=== PATIENT | male | born 1980 | race Caucasian/White ===

== ENCOUNTER → 2018-03-07 | Outpatient (CLI) | payer OTHER ==
[2015-03-01 17:40] VITALS: BP 127/86
[~2018-03-07] MED LIST: HYDR-2679 PO; LITH450T PO; ONDA4TAB7 PO; QUET25TA5 PO; SULF1TAB24 PO; TRAZ-85 PO
== END | disposition home or self-care (01) ==
LOC: SPEC 07:57
PROVIDERS: ATTEND Surgery
DX: L02.91 Cutaneous abscess, unspecified (principal)
CPT/HCPCS: 87071; 87075

== ENCOUNTER 2020-12-03 09:06 | Inpatient (IN) | payer OTHER ==
[~2020-12-03] VITALS: Ht 182.9 cm; Wt 94.0 kg
[2020-12-03 09:00] VITALS: BP 137/83
--- NOTE | 2020-12-03 09:00 | NUR ---
Pt to room by EMS. Attached to cardiac nurse practitioner. Monitor shows SR. VSS. Pt A&Ox4. C/O some chest pain. Heparin gtt infusing. Pt states he takes numerous psych meds. Instructed him to have family bring his medications to the hospital. Will continue to monitor.
[~2020-12-03 09:06] MED LIST changes: +TRAZ-118 PO; -TRAZ-85 PO
[2020-12-03 09:30] VITALS: BP 150/90
[2020-12-03 10:00] VITALS: BP 120/64
[2020-12-03 12:00] VITALS: BP 117/72
[2020-12-03] MEDS ORDERED: OLAN5TAB67 PO (12:50)
[2020-12-03] MEDS ORDERED: LEVO50TA5 PO (12:50)
[2020-12-03] MEDS ORDERED: LISI2.5T PO (12:50)
[2020-12-03] MEDS ORDERED: SITA100T PO (12:50)
[2020-12-03] MEDS ORDERED: GABA300C18 PO (12:50)
[2020-12-03] MEDS ORDERED: TRAZ-118 PO (12:50)
[2020-12-03] MEDS ORDERED: BREX1TAB PO (12:50)
[2020-12-03] MEDS ORDERED: LITH300C PO (12:50)
[2020-12-03] MEDS ORDERED: ALLO300T PO (12:50)
[2020-12-03] MEDS ORDERED: LAMO300T2 PO (12:50)
[2020-12-03] MEDS ORDERED: METF10007 PO (12:50)
[2020-12-03] MEDS: GABAPENTIN 300 MG CAPSULE. PO SCH ×2 (13:16→20:47)
[2020-12-03] MEDS: ALLOPURINOL 300 MG TABLET. PO SCH (13:16)
[2020-12-03] MEDS: LITHIUM CARBONATE 150 MG CAPSULE. PO SCH ×2 (13:16→20:47)
[2020-12-03] MEDS: LISINOPRIL 5 MG TABLET. PO SCH (13:17)
[2020-12-03 13:18] LABS: CALCIUM 8.6 mg/dL (8.5-10.1); CREATININE 0.9 mg/dL (0.7-1.3); MAGNESIUM 2.1 mg/dL (1.8-2.4)
[2020-12-03] MEDS: metFORMIN 500 MG TABLET PO SCH ×2 (13:18→16:22)
[2020-12-03] MEDS: LEVOTHYROXINE 50 MCG TABLET PO SCH (13:18)
[2020-12-03] MEDS: HEPARIN for IV BOLUS 10,000 UNIT/10 ML VIAL. IV PRN (13:49)
--- NOTE | 2020-12-03 15:12 | PDOC2 ---
CONSULT Date of Consult Date of Consult DATE: 12/03/20 TIME: 15:07 Reason for Consult Reason for Consult: Chest pain Referring Physician Referring Physician: Dr. Armando Identification/Chief Complaint Chief Complaint Chest pain Source Source: Chart review, Patient History of Present Illness Reason for Visit: The patient is a 40-year-old male who was seen in the emergency room at [facility] for episodes of chest pain. His EKG showed no acute ischemic changes but he had a minimally elevated troponin. He also has risk factors of hypertension and diabetes. He was started on heparin and transferred to [place]. This morning the patient reports being pain-free. He denies chest pain, shortness of breath, dizziness or lightheadedness. He is in a sinus rhythm. Of note he also has a history of schizophrenia. Past Medical History Cardiovascular: HTN Pulmonary: Asthma Endocrine: Diabetes Past Surgical History Past Surgical History: No pertinent history Family History Family History: Hypertension Social History 1 pack per day ALCOHOL: occassional Current Medications Current Medications Current Medications Heparin Sodium/ Dextrose 250 ml @ 0 mls/hr CONT PRN IV PER PROTOCOL; Start 12/03/20 at 10:00 Heparin Sodium (Porcine) (Heparin Sodium) 2,450 unit PRN Q6HRS PRN IV FOR UFH LEVEL LESS THAN 0.2 Last administered on 12/03/20at 13:49; Start 12/03/20 at 10:00 Allopurinol (Zyloprim) 300 mg DAILY PO Last administered on 12/03/20at 13:16; Start 12/03/20 at 13:30 Gabapentin (Neurontin) 300 mg TID PO Last administered on 12/03/20at 13:16; Start 12/03/20 at 13:30 Levothyroxine Sodium (Synthroid) 50 mcg DAILY06 PO Last administered on 12/03/20at 13:18; Start 12/03/20 at 13:30 Olanzapine (ZyPREXA) 15 mg QHS PO ; Start 12/03/20 at 21:00 Trazodone HCl (Desyrel) 50 mg QHS PO ; Start 12/03/20 at 21:00 Non-Formulary Medication (Brexpiprazole (Rexulti)) 3 tab HS PO ; Start 12/03/20 at 21:00; Status UNV Lamotrigine (LaMICtal) 300 mg HS PO ; Start 12/03/20 at 21:00 Lisinopril (Prinivil) 2.5 mg DAILY PO Last administered on 12/03/20at 13:17; Start 12/03/20 at 13:30 [place] Carbonate ([place] Carbonate) 300 mg BID PO Last administered on 12/03/20at 13:16; Start 12/03/20 at 13:30 Metformin HCl (Glucophage) 1,000 mg BIDWMEALS PO Last administered on 12/03/20at 13:18; Start 12/03/20 at 13:30 Active Scripts Active Reported Gabapentin (Gabapentin) 300 Mg Capsule 300 Mg PO TID [place] Carbonate 300 Mg Capsule 1 Cap PO BID Metformin Hcl 1,000 Mg Tablet 1,000 Mg PO BIDWMEALS Olanzapine 5 Mg Tablet 3 Tab PO QHS Rexulti (Brexpiprazole) 1 Mg Tablet 3 Tab PO HS 30 Days Lamotrigine 300 Mg Tab.er.24 1 Tab PO HS 30 Days Trazodone Hcl 50 Mg Tablet 1 Tab PO QHS Januvia (Sitagliptin Phosphate) 100 Mg Tablet 1 Tab PO DAILY Lisinopril 2.5 Mg Tablet 1 Tab PO DAILY Allopurinol 300 Mg Tablet 1 Tab PO DAILY Levothyroxine Sodium 50 Mcg Tablet 1 Tab PO DAILY Allergies Allergies: Coded Allergies: codeine (Verified Allergy, Intermediate, Unknown, 03/01/15) ROS Cardiovascular: yes Chest Pain Physical Exam General: No acute distress HEENT: Atraumatic Lungs: Clear to auscultation Heart: Regular rate Abdomen: Normal bowel sounds Vitals VITALS Vital Signs Date Time Temp Pulse Resp B/P (MAP) Pulse Ox O2 Delivery O2 Flow Rate FiO2 12/03/20 13:17 77 137/81 12/03/20 12:00 98.0 22 94 Room Air 98.0 Labs Labs Laboratory Tests Test 12/03/20 12:25 Heparin Anti-Xa Act, Unfractionated < 0.10 IU/mL (0.30-0.70) Sodium Level 142 mmol/L (136-145) Potassium Level 4.0 mmol/L (3.5-5.1) Chloride Level 104 mmol/L (98-107) Carbon Dioxide Level 30 mmol/L (21-32) Anion Gap 8 (6-14) Blood Urea Nitrogen 7 mg/dL (8-26) Creatinine 0.9 mg/dL (0.7-1.3) Estimated GFR (Cockcroft-Gault) 93.0 Glucose Level 170 mg/dL (70-99) Calcium Level 8.6 mg/dL (8.5-10.1) Magnesium Level 2.1 mg/dL (1.8-2.4) Troponin I Quantitative 2.030 ng/mL (0.000-0.055) Laboratory Tests Test 12/03/20 12:25 Heparin Anti-Xa Act, Unfractionated < 0.10 IU/mL (0.30-0.70) Sodium Level 142 mmol/L (136-145) Potassium Level 4.0 mmol/L (3.5-5.1) Chloride Level 104 mmol/L (98-107) Carbon Dioxide Level 30 mmol/L (21-32) Anion Gap 8 (6-14) Blood Urea Nitrogen 7 mg/dL (8-26) Creatinine 0.9 mg/dL (0.7-1.3) Estimated GFR (Cockcroft-Gault) 93.0 Glucose Level 170 mg/dL (70-99) Calcium Level 8.6 mg/dL (8.5-10.1) Magnesium Level 2.1 mg/dL (1.8-2.4) Troponin I Quantitative 2.030 ng/mL (0.000-0.055) Images Images Chest x-ray from [facility] showed no acute changes. Assessment/Plan Assessment/Plan 1. Chest pain. No acute ischemic EKG changes. Minimally elevated troponin. Patient's been placed on aspirin and heparin. He is now pain-free. Will trend troponin. Further treatment based on the patient's clinical course. 2. Hypertension. Resume baseline medications. 3. Diabetes mellitus. As per the primary service. 4. History of schizophrenia. JAGJIT SOTOMAYOR MD Dec 03, 2020 15:12
[2020-12-03] MEDS ORDERED: NICOTINE 21MG PATCH. TD PRN (15:45)
[2020-12-03] MEDS: CALCIUM CARBONATE 500 MG TAB.CHEW PO PRN (15:48)
[2020-12-03 16:00] VITALS: BP 123/62
[2020-12-03 20:00] VITALS: BP 118/71
[2020-12-03] MEDS: lamoTRIgine 100 MG TABLET. PO SCH (20:47)
[2020-12-03] MEDS: OLANZapine 5 MG TABLET PO SCH (20:47)
[2020-12-03] MEDS: traZODone 50 MG TABLET. PO SCH (20:47)
[2020-12-03] MEDS: BREXPIPRAZOLE PO SCH (20:49)
[2020-12-03] MEDS: HEPARIN 25,000UTS/250ML PREMIX 250 ML IV PRN (23:51)
[2020-12-04] VITALS (9 sets, daily range): BP systolic 119–151; BP diastolic 65–98
[2020-12-04] MEDS: HEPARIN for IV BOLUS 10,000 UNIT/10 ML VIAL. IV PRN (01:51)
[2020-12-04] MEDS: LEVOTHYROXINE 50 MCG TABLET PO SCH (05:18)
[2020-12-04] MEDS: INSULIN LISPRO 300 UNITS/3 ML VIAL. SQ SCH ×3 (08:00→17:32)
[2020-12-04] MEDS ORDERED: DEXTROSE 50% 25 GM / 50ML DISP.SYRIN. IV PRN (08:00)
[2020-12-04] MEDS: LISINOPRIL 5 MG TABLET. PO SCH (08:33)
[2020-12-04] MEDS: LITHIUM CARBONATE 150 MG CAPSULE. PO SCH ×2 (08:33→21:19)
[2020-12-04] MEDS: ALLOPURINOL 300 MG TABLET. PO SCH (08:33)
[2020-12-04] MEDS: GABAPENTIN 300 MG CAPSULE. PO SCH ×3 (08:33→21:19)
--- NOTE | 2020-12-04 09:12 | HP ---
ADMIT DATE: 12/03/2020 HISTORY OF PRESENT ILLNESS: The patient is a 40-year-old male patient who presented to the emergency room of [facility] with a complaint of chest pain that apparently started a few days prior to arrival to the emergency room. The chest pain was centralized, started while he was sitting and watching TV. There was no exertional component to it. He denied any recent dyspnea on exertion, orthopnea, paroxysmal nocturnal dyspnea or edema. He denied any history of DVTs. Denied any history of recent trauma. He was evaluated in the Emergency Room and has had an EKG, which showed that he was in sinus tachycardia with a heart rate of 107 with no evidence of ST segment elevation. His lab work showed that his first set of troponin was 0.162. His coagulation tests were normal and his urine tox screen was negative. Therefore, he was transferred to [facility] with non-ST segment elevation myocardial infarction after he was started on heparin drip. PAST MEDICAL HISTORY: Significant for bronchial asthma, depression, diabetes, hypertension and schizophrenia. PAST SURGICAL HISTORY: Unremarkable. SOCIAL HISTORY: He apparently smokes cigarettes, drinks alcohol occasionally. He does not use any drugs. ALLERGIES: HE IS ALLERGIC TO CODEINE. MEDICATIONS: He is currently on the following medications: He is on atorvastatin calcium 40 mg at bedtime, lisinopril 2.5 mg once a day, gabapentin 100 mg once a day, lamotrigine 100 mg at bedtime, trazodone 50 mg at bedtime, Abilify Maintena 400 mg intramuscular every 3 weeks, olanzapine 5 mg every other day, metformin 500 mg twice a day and sitagliptin for Januvia 50 mg once a day. He is on levothyroxine sodium 75 mcg once a day. REVIEW OF SYSTEMS: As per history of present illness. PHYSICAL EXAMINATION: GENERAL: On arrival to the emergency room, he looked well and was clearly in no apparent respiratory distress. There is no pallor, jaundice, cyanosis, no thyromegaly, no jugular venous distention. No limb edema. VITAL SIGNS: His heart rate was 108, blood pressure was 151/95, temperature was 98.4, respiratory rate 20, and oxygen saturation was 98%. HEAD, EYES, EARS, NOSE, AND THROAT: Normocephalic, atraumatic. NECK: Supple. HEART: Normal first and second heart sounds, no gallop or murmur. CHEST: Clear to auscultation. No crepitation or rhonchi. ABDOMEN: Scaphoid, soft, nontender. NEUROLOGIC: He was grossly intact. LABORATORY DATA: Showed a white cell count of 8200, hemoglobin 16, hematocrit 46, MCV 89 and platelet count of 167,000 with normal manual differential. His chemistry showed a serum sodium 139, potassium 4.1, chloride 103, bicarbonate 22, anion gap of 14, BUN 8, creatinine 1.2. Estimated GFR was 66 mL per minute. His glucose was 268, calcium was 9, magnesium was 1.8 and first set of cardiac enzyme showed troponin to be 0.162. His prothrombin time/INR and APTT are normal; and his EKG showed that he was in sinus tachycardia with a heart rate of 107 with no STEMI, normal intervals. ASSESSMENT AND PLAN: The patient was transferred to [facility] with chest pain, non-ST segment elevation myocardial infarction. The patient has multiple other medical problems including a type 2 diabetes mellitus, hypertension, hypothyroidism and schizophrenia. DILIA/REESE/TYLER DR: Petr TID: [id number]
[2020-12-04] MEDS: NITROGLYCERIN SUBLINGUAL 0.4 MG BOTTLE OF 25. SL PRN ×5 (09:15→22:49)
[2020-12-04] MEDS ORDERED: NITROGLYCERIN SUBLINGUAL 0.4 MG BOTTLE OF 25. SL ONE (09:21)
[2020-12-04] MEDS: CALCIUM CARBONATE 500 MG TAB.CHEW PO PRN (09:23)
--- NOTE | 2020-12-04 09:30 | NUR ---
Pt c/o chest pain. States its a 10/27. Stat EKG obtained. Pt given NTG SL. Dr. Salinas notified. Pt states pain decreased to 1-06/29.
[2020-12-04 10:42] LABS: CHOLESTEROL/HDL RATIO 6.3
--- NOTE | 2020-12-04 11:13 | EKG ---
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
[2020-12-04] MEDS ORDERED: MORPHINE SULFATE 2 MG/ML INJ. IV ONE (11:15)
--- NOTE | 2020-12-04 11:21 | PN ---
DATE: 12/04/2020 SUBJECTIVE: The patient is resting flat in bed, in no apparent distress. On questioning him, he denied any complaint. In particular, he had no further episode of chest pain or shortness of breath. PHYSICAL EXAMINATION: GENERAL: When I examined him, he looked well and was clearly in no apparent respiratory distress. No pallor, jaundice, cyanosis, or thyromegaly. No jugular venous distention. No lower limb edema. VITAL SIGNS: His heart rate was 78, blood pressure was 151/79, temperature was 98, respiratory rate was 20 and oxygen saturation was 93% on room air. HEAD, EYES, EARS, NOSE, AND THROAT: Normocephalic, atraumatic. NECK: Supple. HEART: Showed normal first and second heart sounds. No gallop, rub or murmur. CHEST: Clear to auscultation. No crepitation or rhonchi. ABDOMEN: Distended, soft, nontender. NEUROLOGIC: He was grossly intact. LABORATORY DATA: His lab work showed that his second troponin was up to 2.030. ASSESSMENT: 1. Non-ST segment elevation myocardial infarction. 2. The patient has multiple risk factors for coronary artery disease including: A. Hypertension. B. Type 2 diabetes mellitus. C. Hyperlipidemia. D. He is also a smoker. PLAN: The patient was seen by the director federal and so far, there are no plans for cardiac catheterization. CAITLYN BLACKMAN: Petr TID: [id number]
--- NOTE | 2020-12-04 11:23 | EKG ---
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
--- NOTE | 2020-12-04 11:30 | NUR ---
Pt once again c/o of chest pain. NTG SL given. Stat EKG obtained. Order received for Morphine IV. Dr. Salinas here to evaluate patient.
[2020-12-04] MEDS: HEPARIN 25,000UTS/250ML PREMIX 250 ML IV PRN (12:40)
--- NOTE | 2020-12-04 15:00 | PDOC ---
PROGRESS NOTES Date of Service DATE: 12/04/20 TIME: 14:57 Subjective Subjective Patient seen and examined Objective Objective Vital Signs Date Time Temp Pulse Resp B/P (MAP) Pulse Ox O2 Delivery O2 Flow Rate FiO2 12/04/20 12:00 99.2 96 21 129/82 (98) 94 Room Air 99.2 Intake and Output 12/04/20 06:59 Intake Total 1810 ml Output Total 1300 ml Balance 510 ml Intake Oral 1190 ml Other 620 ml Output Urine Total 1300 ml # Voids 2 Physical Exam Abdomen: Normal bowel sounds Heart: Regular rate General: mild distress Lungs: Clear to auscultation Assessment Assessment 1. Chest pain. No acute ischemic EKG changes. Minimally elevated troponin with a peak of 2.03. The patient however reports occasional episodes of chest pain. No acute EKG changes with his chest pain. He remains on heparin. In this setting believe cardiac catheterization for definitive diagnosis of possible coronary disease is indicated. The procedure risk and benefits were discussed with the patient. We will proceed with cardiac catheterization tomorrow if the patient remained stable overnight. 2. Hypertension. Continuing present medications. 3. Diabetes mellitus. As per the primary service. 4. History of schizophrenia. 5. Mildly elevated LDL at 101 with an HDL of 29. Will start statins. Comment Review of Relevant I have reviewed the following items harmeet (where applicable) has been applied. Labs Laboratory Tests Test 12/03/20 12:25 12/03/20 18:15 12/04/20 00:01 12/04/20 08:14 Heparin Anti-Xa Act, Unfractionated < 0.10 IU/mL (0.30-0.70) 0.20 IU/mL (0.30-0.70) < 0.10 IU/mL (0.30-0.70) Sodium Level 142 mmol/L (136-145) Potassium Level 4.0 mmol/L (3.5-5.1) Chloride Level 104 mmol/L (98-107) Carbon Dioxide Level 30 mmol/L (21-32) Anion Gap 8 (6-14) Blood Urea Nitrogen 7 mg/dL (8-26) Creatinine 0.9 mg/dL (0.7-1.3) Estimated GFR (Cockcroft-Gault) 93.0 Glucose Level 170 mg/dL (70-99) Calcium Level 8.6 mg/dL (8.5-10.1) Magnesium Level 2.1 mg/dL (1.8-2.4) Troponin I Quantitative 2.030 ng/mL (0.000-0.055) Glucose (Fingerstick) 149 mg/dL (70-99) Test 12/04/20 08:15 12/04/20 12:38 12/04/20 14:10 Heparin Anti-Xa Act, Unfractionated 0.52 IU/mL (0.30-0.70) 0.44 IU/mL (0.30-0.70) Troponin I Quantitative 1.812 ng/mL (0.000-0.055) Triglycerides Level 265 mg/dL (0-150) Cholesterol Level 183 mg/dL (0-200) LDL Cholesterol, Calculated 101 mg/dL (0-100) VLDL Cholesterol, Calculated 53 mg/dL (0-40) Non-HDL Cholesterol Calculated 154 mg/dL (0-129) HDL Cholesterol 29 mg/dL (40-60) Cholesterol/HDL Ratio 6.3 Glucose (Fingerstick) 193 mg/dL (70-99) Laboratory Tests Test 12/03/20 18:15 12/04/20 00:01 12/04/20 08:14 12/04/20 08:15 Heparin Anti-Xa Act, Unfractionated 0.20 IU/mL (0.30-0.70) < 0.10 IU/mL (0.30-0.70) 0.52 IU/mL (0.30-0.70) Glucose (Fingerstick) 149 mg/dL (70-99) Troponin I Quantitative 1.812 ng/mL (0.000-0.055) Triglycerides Level 265 mg/dL (0-150) Cholesterol Level 183 mg/dL (0-200) LDL Cholesterol, Calculated 101 mg/dL (0-100) VLDL Cholesterol, Calculated 53 mg/dL (0-40) Non-HDL Cholesterol Calculated 154 mg/dL (0-129) HDL Cholesterol 29 mg/dL (40-60) Cholesterol/HDL Ratio 6.3 Test 12/04/20 12:38 12/04/20 14:10 Glucose (Fingerstick) 193 mg/dL (70-99) Heparin Anti-Xa Act, Unfractionated 0.44 IU/mL (0.30-0.70) Medications Current Medications Heparin Sodium/ Dextrose 250 ml @ 0 mls/hr CONT PRN IV PER PROTOCOL Last administered on 12/04/20 12:40; Start 12/03/20 at 10:00 Heparin Sodium (Porcine) (Heparin Sodium) 2,450 unit PRN Q6HRS PRN IV FOR UFH LEVEL LESS THAN 0.2 Last administered on 12/04/20 01:51; Start 12/03/20 at 10:00 Allopurinol (Zyloprim) 300 mg DAILY PO Last administered on 12/04/20 08:33; Start 12/03/20 at 13:30 Gabapentin (Neurontin) 300 mg TID PO Last administered on 12/04/20 12:35; Start 12/03/20 at 13:30 Levothyroxine Sodium (Synthroid) 50 mcg DAILY06 PO Last administered on 12/04/20 05:18; Start 12/03/20 at 13:30 Olanzapine (ZyPREXA) 15 mg QHS PO Last administered on 12/03/20at 20:47; Start 12/03/20 at 21:00 Trazodone HCl (Desyrel) 50 mg QHS PO Last administered on 12/03/20at 20:47; Start 12/03/20 at 21:00 Non-Formulary Medication (Brexpiprazole (Rexulti)) 3 tab HS PO ; Start 12/03/20 at 21:00; Status UNV Lamotrigine (LaMICtal) 300 mg HS PO Last administered on 12/03/20at 20:47; Start 12/03/20 at 21:00 Lisinopril (Prinivil) 2.5 mg DAILY PO Last administered on 12/04/20 08:33; Start 12/03/20 at 13:30 [place] Carbonate ([place] Carbonate) 300 mg BID PO Last administered on 12/04/20 08:33; Start 12/03/20 at 13:30 Metformin HCl (Glucophage) 1,000 mg BIDWMEALS PO Last administered on 12/03/20 16:22; Start 12/03/20 at 13:30; Stop 12/04/20 at 07:57; Status DC Calcium Carbonate/ Glycine (Tums) 500 mg PRN AFTMEALHC PRN PO INDIGESTION Last administered on 7/18/21at 09:23; Start 12/03/20 at 15:45 Nicotine (Nicoderm Cq 21mg) 1 patch PRN DAILY PRN TD SMOKING CESSATION Last administered on 12/03/20at 15:48; Start 12/03/20 at 15:45 Insulin Human Lispro (HumaLOG) 0-7 UNITS TIDWMEALS SQ Last administered on 12/04/20at 13:43; Start 12/04/20 at 08:00 Dextrose (Dextrose 50%-Water Syringe) 12.5 gm PRN Q15MIN PRN IV SEE COMMENTS; Start 12/04/20 at 08:00 Nitroglycerin (Nitrostat) 0.4 mg STK-MED ONCE SL ; Start 12/04/20 at 09:21; Stop 12/04/20 at 09:22; Status DC Nitroglycerin (Nitrostat) 0.4 mg PRN Q5MIN PRN SL CHEST PAIN Last administered on 12/04/20at 09:15; Start 12/04/20 at 09:30 Morphine Sulfate (Morphine Sulfate) 2 mg 1X ONCE IV Last administered on 12/04/20at 11:17; Start 12/04/20 at 11:15; Stop 12/04/20 at 11:16; Status DC Morphine Sulfate (Morphine Sulfate) 2 mg PRN Q2HR PRN IV PAIN; Start 12/04/20 at 11:45 Active Scripts Active Reported Gabapentin (Gabapentin) 300 Mg Capsule 300 Mg PO TID [place] Carbonate 300 Mg Capsule 1 Cap PO BID Metformin Hcl 1,000 Mg Tablet 1,000 Mg PO BIDWMEALS Olanzapine 5 Mg Tablet 3 Tab PO QHS Rexulti (Brexpiprazole) 1 Mg Tablet 3 Tab PO HS 30 Days Lamotrigine 300 Mg Tab.er.24 1 Tab PO HS 30 Days Trazodone Hcl 50 Mg Tablet 1 Tab PO QHS Januvia (Sitagliptin Phosphate) 100 Mg Tablet 1 Tab PO DAILY Lisinopril 2.5 Mg Tablet 1 Tab PO DAILY Allopurinol 300 Mg Tablet 1 Tab PO DAILY Levothyroxine Sodium 50 Mcg Tablet 1 Tab PO DAILY Vitals/I & O Vital Sign - Last 24 Hours 12/03/20 12/03/20 12/03/20 12/04/20 16:00 20:00 20:00 00:16 Temp 98.0 98.6 98.7 98.0 98.6 98.7 Pulse 86 90 83 Resp 18 20 15 B/P (MAP) 123/62 (82) 118/71 (87) 119/65 (83) Pulse Ox 94 94 93 O2 Delivery Room Air Room Air Room Air Room Air 12/04/20 12/04/20 12/04/20 12/04/20 04:16 08:00 08:33 09:00 Temp 98.1 98.1 Pulse 78 82 83 88 Resp B/P (MAP) 151/79 (103) 132/69 (90) 132/69 151/97 (115) Pulse Ox 93 92 94 O2 Delivery Room Air Room Air Room Air 12/04/20 12/04/20 12/04/20 12/04/20 09:15 10:00 11:08 11:17 Pulse 85 99 85 Resp 25 B/P (MAP) 123/70 140/82 (101) 123/70 Pulse Ox 93 93 O2 Delivery Room Air Room Air 12/04/20 12:00 Temp 99.2 99.2 Pulse 96 Resp 21 B/P (MAP) 129/82 (98) Pulse Ox 94 O2 Delivery Room Air Intake and Output 12/03/20 12/03/20 12/04/20 14:59 22:59 06:59 Intake Total 240 ml 970 ml 600 ml Output Total 1300 ml Balance 240 ml 970 ml -700 ml Justifications for Admission Other Justification JAGJIT SOTOMAYOR MD Dec 04, 2020 15:00
[2020-12-04] MEDS: MORPHINE SULFATE 2 MG/ML INJ. IV PRN ×2 (16:10→22:48)
[2020-12-04] MEDS: BREXPIPRAZOLE PO SCH (21:00)
[2020-12-04] MEDS ORDERED: ATORVASTATIN CALCIUM 20 MG TABLET PO SCH (21:00)
[2020-12-04] MEDS: OLANZapine 5 MG TABLET PO SCH (21:19)
[2020-12-04] MEDS: lamoTRIgine 100 MG TABLET. PO SCH (21:19)
[2020-12-04] MEDS: traZODone 50 MG TABLET. PO SCH (21:19)
[2020-12-05] VITALS (12 sets, daily range): BP systolic 115–145; BP diastolic 66–94
[2020-12-05] MEDS: HEPARIN 25,000UTS/250ML PREMIX 250 ML IV PRN (03:22)
[2020-12-05 05:25] LABS: BASO # 0.1 x10^3/uL (0.0-0.2); BASO % 1 % (0-3); EOS # 0.1 x10^3/uL (0.0-0.7); EOS % 2 % (0-3); HEMATOCRIT 45.9 % (39.0-53.0); HEMOGLOBIN 16.1 g/dL (13.0-17.5); LYMPH # 2.4 x10^3/uL (1.0-4.8); LYMPH % 29 % (24-48); MEAN CORPUSCULAR HEMOGLOBIN 31 pg (25-35); MEAN CORPUSCULAR HGB CONC 35 g/dL (31-37); MEAN CORPUSCULAR VOLUME 87 fL (79-100); MONO # 0.4 x10^3/uL (0.0-1.1); MONO % 5 % (0-9); NEUT # 5.1 x10^3/uL (1.8-7.7); NEUT % 63 % (31-73); PLATELET COUNT 143 x10^3/uL (140-400); RED BLOOD COUNT 5.27 x10^6/uL (4.30-5.70); RED CELL DISTRIBUTION WIDTH 14.3 % (11.5-14.5); WHITE BLOOD COUNT 8.2 x10^3/uL (4.0-11.0)
[2020-12-05 05:35] LABS: CALCIUM 8.5 mg/dL (8.5-10.1); CREATININE 0.9 mg/dL (0.7-1.3); POTASSIUM 4.1 mmol/L (3.5-5.1)
[2020-12-05] MEDS: LEVOTHYROXINE 50 MCG TABLET PO SCH (06:00)
[2020-12-05] MEDS: IV NORMAL SALINE 1000ML BAG 1,000 ML IV SCH ×2 (07:56→20:58)
[2020-12-05] MEDS: INSULIN LISPRO 300 UNITS/3 ML VIAL. SQ SCH ×3 (07:57→17:24)
[2020-12-05] MEDS: MORPHINE SULFATE 2 MG/ML INJ. IV PRN (08:10)
--- NOTE | 2020-12-05 09:28 | PN ---
DATE: 12/05/2020 SUBJECTIVE: The patient is resting flat, sleeping comfortably, in no apparent distress. On questioning him, he denied any complaint. Nursing staff did not voice any concerns, stated that he had an uneventful night. PHYSICAL EXAMINATION: GENERAL: When I examined him, he looked well and was clearly in no apparent respiratory distress. VITAL SIGNS: His heart rate was 62, blood pressure 145/80, temperature was 98.9, respiratory rate was 20 and oxygen saturation was 95% on 4 liters of oxygen. The rest of clinical exam is stable, has not really changed. LABORATORY DATA: Lab work this morning showed a serum sodium 139, potassium 4.1, chloride 105, bicarbonate 26, anion gap of 8, BUN 5, creatinine 0.9. Estimated GFR was 93 mL per minute. His blood sugar was 104 mg/dL. His fasting lipid profile showed a serum triglycerides 265. Total cholesterol 183, LDL was 101, VLDL was 53 and HDL was 29 and the ratio was 6.3. ASSESSMENT: 1. Non-ST segment elevation myocardial infarction. 2. Hypertension. 3. Hyperlipidemia. 4. Type 2 diabetes mellitus. 5. He is a smoker. Apparently, the patient is scheduled for cardiac catheterization and revascularization today. NANDO DR: Petr TID: [id number]
[2020-12-05] MEDS: ALLOPURINOL 300 MG TABLET. PO SCH (09:43)
[2020-12-05] MEDS: GABAPENTIN 300 MG CAPSULE. PO SCH ×3 (09:43→20:53)
[2020-12-05] MEDS: LITHIUM CARBONATE 150 MG CAPSULE. PO SCH ×2 (09:43→20:53)
[2020-12-05] MEDS: LISINOPRIL 5 MG TABLET. PO SCH (09:44)
--- NOTE | 2020-12-05 10:00 | NUR ---
SS following for discharge planning. SS reviewed pt chart and discussed with pt RN. Pt is from home and is currently requiring oxygen at four liters nasal canula. Pt has no home oxygen. NPO. Pt having left heart cath today. Heparin drip. SS will continue to follow for discharge planning.
[2020-12-05] MEDS ORDERED: IODIXANOL 320 MG/ML 100 ML VIAL. ONE (14:35)
[2020-12-05] MEDS ORDERED: LIDOCAINE 1% PF 2 ML VIAL. ONE (14:45)
[2020-12-05] MEDS ORDERED: NITROGLYCERIN 200 MCG/2 ML SYRINGE FOR CATH/VASC LAB. ONE (14:49)
[2020-12-05] MEDS ORDERED: HEPARIN for IV BOLUS 10,000 UNIT/10 ML VIAL. ONE (14:49)
[2020-12-05] MEDS ORDERED: fentaNYL PF VIAL 100 MCG/2 ML VIAL ONE (14:49)
[2020-12-05] MEDS ORDERED: VERAPAMIL 5 MG/2 ML VIAL. ONE (14:49)
[2020-12-05] MEDS ORDERED: MIDAZOLAM HCL/PF 5 MG/5 ML VIAL. ONE (14:49)
[2020-12-05] MEDS ORDERED: HEPARIN for IV BOLUS 10,000 UNIT/10 ML VIAL. IART ONE (15:30)
[2020-12-05] MEDS ORDERED: VERAPAMIL 5 MG/2 ML VIAL. IART ONE (15:30)
[2020-12-05] MEDS ORDERED: LIDOCAINE 1% PF 2 ML VIAL. INJ ONE (15:30)
[2020-12-05] MEDS ORDERED: IODIXANOL 320 MG/ML 100 ML VIAL. IART ONE (15:30)
[2020-12-05] MEDS ORDERED: fentaNYL PF VIAL 100 MCG/2 ML VIAL IV ONE (15:30)
[2020-12-05] MEDS ORDERED: NITROGLYCERIN 200 MCG/2 ML SYRINGE FOR CATH/VASC LAB. IART ONE (15:30)
[2020-12-05] MEDS ORDERED: MIDAZOLAM HCL/PF 5 MG/5 ML VIAL. IV ONE (15:30)
[2020-12-05] MEDS ORDERED: TIROFIBAN 5MG -0.9% NS 100 ML IV ONE (15:31)
[2020-12-05] MEDS ORDERED: IOHEXOL 300 MG/ML 100ML VIAL. ONE (16:04)
[2020-12-05] MEDS ORDERED: HEPARIN for IV BOLUS 10,000 UNIT/10 ML VIAL. IV ONE (16:15)
[2020-12-05] MEDS ORDERED: PRASUGREL 10 MG TABLET. ONE ×2 (16:15→16:16)
[2020-12-05] MEDS ORDERED: PRASUGREL 10 MG TABLET. PO ONE (16:15)
[2020-12-05] MEDS ORDERED: NITROGLYCERIN 200 MCG/2 ML SYRINGE FOR CATH/VASC LAB. ICAR ONE (16:15)
[2020-12-05] MEDS ORDERED: IOHEXOL 300 MG/ML 100ML VIAL. IART ONE (16:15)
[2020-12-05] MEDS: TIROFIBAN 5MG -0.9% NS 100 ML IV PRN ×2 (17:15→23:09)
--- NOTE | 2020-12-05 18:22 | PDOC ---
MODERATE SEDATION ASSESSMENT RISKS/ALTERNATIVES Risks/Alternatives Risks and alternatives of this type of sedation and procedure discussed with: RISK/ALTERNATIVES: Patient H & P ON CHART H & P H & P on chart and reviewed for co-morbid conditions and appropriate labs. H&P ON CHART: Yes STATUS PREG STATUS ASSESSED: N/A MEDS/ALLERGIES REVIEWED Meds/Allergies Reviewed Medications and Allergies including time and route of recently administered narcotics and sedatives. MEDS/ALLERGIES REVIEWED: Yes ASA RATING ASA RATING: III AIRWAY ASSESSMENT Airway Assessment Airway patency, oral function limitations, presence of caps, crowns, dentures, partials, and ability to extend neck assessed. AIRWAY ASSESSMENT: Yes MALLAMPATI SCORE MALLAMPATI SCORE: II PRE-SEDATION ASSESSMENT PRE-SEDATION ASSESSMENT: Yes RICHY HERRMANN MD Dec 05, 2020 18:22
--- NOTE | 2020-12-05 18:29 | CARD ---
MR#: [id number] Date of Study: 12/05/2020 Ordering Physician: JAGJIT SOTOMAYOR, Referring Physician: JAGJIT SOTOMAYOR, Tech: RT Taylor(R) APPROVED REPORT Technologist: RT Taylor(R) Nurse: Loren Estrada RN Procedure(s) performed: Sedation Time: 78 Minutes Dose: 284 Gycm2 Contrast: 207 mL Visipaque 320 + 22 mL Omnipaque 300 Fluoro Time: 16.3 Minutes LHC, COronary angiography Complex PCI of the LCx and 1st Diagonal [facility] Clinical Frailty Scale [facility] Clinical Frailty Scale: Managing Well Heart Failure Heart Failure: No CASE TECHNIQUE IV conscious sedation was used throughout procedure with appropriate monitoring and was performed in the presence of a registered nurse who was an independent trained observer other than the physician p erforming the procedure. During this case, Fluoroscopy and low osmolar contrast were used for imaging . Specimen(s) Removed: N/A Estimated Blood loss: 20 cc's. PROCEDURE NARRATIVE Clinical information: 40-year-old male presented to the hospital in the setting of chest pain and elevated troponin. After appropriate discussion of the risks and benefits and informed consent the patient was taken to the c atheterization laboratory for further evaluation Procedure details: The right wrist was prepped and draped in usual sterile fashion. Next, a 6 Tajik sheath was placed in the right radial artery via the Seldinger technique. Diagnostic angiography was then performed wi th a 6 Tajik TIG catheter. Left ventricular end-diastolic pressure was obtained with a pigtail cath eter and a pullback was performed. Findings: LVEDP 19 mmHg No LV to aortic pullback gradient. Coronary angiography: Left main is a large-caliber vessel with normal angiographic appearance LAD is a large-caliber vessel with normal angiographic appearance D1 is a moderate caliber bifurcating vessel with a proximal 70% stenosis extending to the larger supe rior branch. The inferior branch has a 70% stenosis and is of small caliber at approximately 1.5 mm. Left circumflex is a large-caliber vessel with a mid subtotal occlusion. OM1 is a moderate caliber vessel with a proximal 70% stenosis. RCA is a large caliber dominant vessel with normal angiographic appearance Interventional technique: Heparin and tirofiban were used for anticoagulation. Through a 6 Tajik EBU 3.5 guide catheter a Pro water wire was used to traverse the mid left circumflex occlusion. Prior to this, a [place] wire wa s also placed in the distal first diagonal for guide support. Next, balloon angioplasty was performe d with a 2.5 x 20 mm balloon and the circumflex lesion was then stented with a 3.5 x 38 mm drug-eluti ng stent. The stent was then postdilated with a 3.5 mm noncompliant balloon at 16 jennifer. Attention wa s then turned diagonal. Balloon angioplasty was performed with a 2.5 x 12 mm balloon and stented wit h a resolute 3.0 x 30 mm drug-eluting stent. This was then postdilated with a 3 mm noncompliant ball oon. Final angiography demonstrated excellent stent expansion with RENETTA-3 flow in the vessels and no evidence of guide or wire related complications. At case completion the right radial sheath was rem tan and hemostasis was achieved via atrial radial band inflated to 12 mL of air. The patient receiv ed 60 mg of prasugrel at case completion. No acute complications noted. RENETTA Flow RENETTA Flow (Pre-Intervention): RENETTA-0 RENETTA Flow (Post-Intervention): RENETTA-3 RENETTA Flow RENETTA Flow (Pre-Intervention): RENETTA-3 RENETTA Flow (Post-Intervention): RENETTA-3 Conclusion 1. Acute on chronic diastolic heart failure, LVEDP 19 mmHg 2. Two-vessel coronary artery disease with culprit lesion of the left circumflex 3. Successful PCI of the left circumflex with implantation of a 3.5 x 38 mm resolute drug-eluting st ent in the mid to distal segment. 4. Successful PCI of the first diagonal with implantation of a 3.0 x 30 mm drug-eluting stent. Recommendations 1. Aspirin 81 mg daily indefinitely 2. Prasugrel 10 mg daily for at least 1 full year 3. High-dose statin therapy 4. Cardiac rehabilitation referral. 5. Risk factor modification including smoking cessation. Signed by : Gustavo Ochoa, Electronically Approved : 12/05/2020 18:29:31
[2020-12-05] MEDS: OLANZapine 5 MG TABLET PO SCH (20:52)
[2020-12-05] MEDS: lamoTRIgine 100 MG TABLET. PO SCH (20:53)
[2020-12-05] MEDS: traZODone 50 MG TABLET. PO SCH (20:53)
[2020-12-05] MEDS: POLYETHYLENE GLYCOL 3350 17 GM PACKET. PO SCH (20:53)
[2020-12-05] MEDS: BREXPIPRAZOLE PO SCH (20:54)
[2020-12-05] MEDS ORDERED: ATORVASTATIN CALCIUM 40 MG TABLET. PO SCH (21:00)
[2020-12-06 03:00] VITALS: BP 136/76
[2020-12-06] MEDS: TIROFIBAN 5MG -0.9% NS 100 ML IV PRN (05:04)
[2020-12-06] MEDS: LEVOTHYROXINE 50 MCG TABLET PO SCH (06:08)
[2020-12-06 07:00] VITALS: BP 120/79
[2020-12-06] MEDS ORDERED: PRAS10TA9 PO (07:55)
[2020-12-06] MEDS ORDERED: ATOR40TA59 PO (07:55)
[2020-12-06] MEDS ORDERED: ASPI-630 PO (07:55)
[2020-12-06] MEDS: INSULIN LISPRO 300 UNITS/3 ML VIAL. SQ SCH ×2 (08:00→11:58)
[2020-12-06] MEDS ORDERED: ASPIRIN ENTERIC COATED 81 MG TABLET.DR. PO SCH (08:00)
[2020-12-06] MEDS ORDERED: PRASUGREL 10 MG TABLET. PO SCH (08:00)
[2020-12-06] MEDS: LITHIUM CARBONATE 150 MG CAPSULE. PO SCH (08:28)
[2020-12-06] MEDS: ALLOPURINOL 300 MG TABLET. PO SCH (08:28)
[2020-12-06] MEDS: LISINOPRIL 5 MG TABLET. PO SCH (08:29)
[2020-12-06] MEDS: GABAPENTIN 300 MG CAPSULE. PO SCH ×2 (08:29→11:54)
[2020-12-06] MEDS: POLYETHYLENE GLYCOL 3350 17 GM PACKET. PO SCH (08:29)
[2020-12-06] MEDS: IV NORMAL SALINE 1000ML BAG 1,000 ML IV SCH (09:33)
[2020-12-06 10:41] VITALS: BP 106/62
--- NOTE | 2020-12-06 13:00 | NUR ---
SS following up with discharge planning. SS reviewed pt chart and discussed with pt RN. Pt is currently on room air. Pt had heart cath 12/05/2020. Discharge order on the chart for home with self care.
--- NOTE | 2020-12-06 13:11 | PDOC ---
CARDIO Progress Notes Date and Time Date of Service 12/08/19 Time of Evaluation 1310 Subjective Subjective: No Chest Pain, No shortness of breath, No Palpitations Vitals Vitals Vital Signs Date Time Temp Pulse Resp B/P (MAP) Pulse Ox O2 Delivery O2 Flow Rate FiO2 12/06/20 10:41 98.0 88 18 106/62 (77) 96 Room Air 98.0 12/06/20 08:00 2.0 Weight Weight [ ] Input and Output Intake and Output Intake and Output 12/06/20 07:00 Intake Total 990 ml Output Total 3425 ml Balance -2435 ml IV Total 990 ml Output Urine Total 3425 ml Laboratory Labs Laboratory Tests Test 12/05/20 13:10 12/05/20 17:22 12/06/20 08:27 12/06/20 10:58 SARS-CoV-2 Antigen (Rapid) Negative (NEGATIVE) Glucose (Fingerstick) 167 mg/dL (70-99) 146 mg/dL (70-99) 240 mg/dL (70-99) Physical Exam HEENT: Neck Supple W Full Motion Chest: Symmetric LUNGS: Clear to Auscultation Heart: RRR Abdomen: Soft N/T Extremities: No Edema Neurology: alert, oriented, follow commands, other (flat affect ) Assessment Assessment 1. Chest pain, UA 2. NSTEMI; trop highest 2 3. CAD; s/p PCI/MANJEET to LCx and first diagonal 4. Acute on chronic diastolic heart failure, LVEDP 19 mmHg per cath. appears compensated 5. Hypertension; controlled 6. Dyslipidemia; LDL 101. statin 7. Diabetes, II 8. Schizophrenia. Recommendations Secondary prevention including DAPT with ASA and Effient High-dose statin Cardiac rehab referral Risk stratification modification Okay to discharge from a CV standpoint. Follow up in our office as scheduled Justicifation of Admission Dx: Justifications for Admission: Justification of Admission Dx: Yes VT: Acute NSTEMI KALPANA RODRIGUEZ APRN Dec 06, 2020 13:11
--- NOTE | 2020-12-06 13:29 | NUR ---
Discharge Note: [facility] Discharge instructions and discharge home medications reviewed with Patient and a copy given. All questions have been answered and understanding verbalized. The following instructions and handouts were given: d/c and f/u instructions Discontinued lines and drains: Peripheral IV intact. Patient discharged to Home or Self Care with Family Member via Wheelchair
[2020-12-06] MEDS ORDERED: METOPROLOL TART IMMED RELEASE 25 MG TABLET. PO SCH (21:00)
== END 2020-12-06 13:40 | disposition home or self-care (01) | DRG 246 ==
LOC: 1 WEST ICU 09:06
PROVIDERS: ADMIT Internal Medicine; ATTEND Internal Medicine
PROC: 4A023N7 Measurement of Cardiac Sampling and Pressure, Left Heart, Percutaneous Approach (ICD-10-PCS; principal; 2020-12-05)
PROC: 027135Z Dilation of Coronary Artery, Two Arteries with Two Drug-eluting Intraluminal Devices, Percutaneous Approach (ICD-10-PCS; 2020-12-05)
PROC: B211YZZ Fluoroscopy of Multiple Coronary Arteries using Other Contrast (ICD-10-PCS; 2020-12-05)
DX: I21.4 Non-ST elevation (NSTEMI) myocardial infarction (principal); I50.33 Acute on chronic diastolic (congestive) heart failure; E11.9 Type 2 diabetes mellitus without complications; Z20.822 Contact with and (suspected) exposure to COVID-19; Z88.5 Allergy status to narcotic agent; F20.9 Schizophrenia, unspecified; E78.5 Hyperlipidemia, unspecified; I11.0 Hypertensive heart disease with heart failure; I25.10 Atherosclerotic heart disease of native coronary artery without angina pectoris; E03.9 Hypothyroidism, unspecified; F17.210 Nicotine dependence, cigarettes, uncomplicated; J45.909 Unspecified asthma, uncomplicated; Z82.49 Family history of ischemic heart disease and other diseases of the circulatory system; F32.9 Major depressive disorder, single episode, unspecified
CPT/HCPCS: 36415; 80048; 80061; 82962; 83735; 84484; 85025; 85520; 87426; 92928; 93005; 93458; 99152; 99153; C1725; C1874; C1894; J1644; J1815; J2250; J2270; J3010; J3490; J7030; Q9967; G0378; J3246

== ENCOUNTER → 2021-01-19 | Outpatient (CLI) | payer OTHER ==
[~2021-01-19] MED LIST changes: +ALLO300T PO; +ASPI-630 PO; +ATOR40TA59 PO; +BREX1TAB PO; +GABA300C18 PO; +LAMO300T2 PO; +LEVO50TA5 PO; +LISI2.5T12 PO; +LITH300C PO; +METF10007 PO; +OLAN5TAB67 PO; +PRAS10TA9 PO; +SITA100T PO
--- NOTE | 2021-01-19 16:14 | CARD ---
MR#: [id number] Date of Study: 01/19/2021 Ordering Physician: RICHY HERRMANN, Referring Physician: RICHY HERRMANN, Tech: Jannet Yusuf, [facility] APPROVED REPORT EXAM: Two-dimensional and M-mode echocardiogram with Doppler and color Doppler. Other Information Quality : AverageHR: 84bpm INDICATION Cardiac Disease: CAD RISK FACTORS Hypertension Diabetes Smoking 2D DIMENSIONS Left Atrium(2D)3.3 (1.6-4.0cm)IVSd1.1 (0.7-1.1cm) Aortic Root(2D)3.9 (2.0-3.7cm)LVDd4.9 (3.9-5.9cm) LVOT Diameter2.3 (1.8-2.4cm)PWd1.5 (0.7-1.1cm) LVDs3.8 (2.5-4.0cm)FS (%) 22.6 % SV51.7 mlLVEF(%)45.2 (>50%) Aortic Valve AoV Peak Josemanuel.105.1cm/sAoV VTI18.6cm AO Peak GR.4.4mmHgLVOT VTI 14.14cm AO Mean GR.3mmHg Mitral Valve MV E Pcryjxmh45.3cm/sMV E Peak Gr.2mmHg MV DECEL [id number] A Usecvrpr98.3cm/s MV E Mean Gr.1mmHgE/A Ratio0.9 TDI Lateral E' P. V7.79cm/sMedial E' P. V6.05cm/s E/Lateral E'5.8E/Medial E'7.5 Tricuspid Valve TR P. Foprxmio705cl/sRAP [id number] TR Peak Gr.81zqGwKJWJ81xjZs LEFT VENTRICLE The left ventricle is normal size. The left ventricular systolic function is normal. The ejection fra ction is estimated at 55%. There is normal LV segmental wall motion. Transmitral Doppler flow pattern is Grade I-abnormal relaxation pattern. RIGHT VENTRICLE The right ventricle is normal size. There is normal right ventricular wall thickness. The right ventr icular systolic function is normal. ATRIA The left atrium size is normal. The right atrium size is normal. The interatrial septum is intact wit h no evidence for an atrial septal defect or patent foramen ovale as noted on 2-D or Doppler imaging. AORTIC VALVE The aortic valve is normal in structure and function. Doppler and Color Flow revealed no significant aortic regurgitation. There is no significant aortic valvular stenosis. Calculated aortic valve area is 2.77 cm2 with maximum pressure gradient of 5 mmHg and mean pressure gradient of 3 mmHg. MITRAL VALVE The mitral valve is normal in structure and function. There is no evidence of mitral valve prolapse. There is no mitral valve stenosis. Doppler and Color-flow revealed trace mitral regurgitation. TRICUSPID VALVE The tricuspid valve is normal in structure and function. Doppler and Color Flow revealed trace tricus pid regurgitation with an estimated PAP of 32 mmHg. There is no tricuspid valve stenosis. PULMONIC VALVE The pulmonic valve is not well visualized. Doppler and Color Flow revealed no pulmonic valvular regur gitation. GREAT VESSELS The aortic root is borderline dilated measuring 3.64 cm. The ascending aorta is normal in size measur ing 3.54 cm. The IVC is normal in size and collapses >50% with inspiration. PERICARDIAL EFFUSION There is no evidence of significant pericardial effusion. Critical Notification Critical Value: No <Conclusion> The left ventricular systolic function is normal. The ejection fraction is estimated at 55%. There is normal LV segmental wall motion. Transmitral Doppler flow pattern is Grade I-abnormal relaxation pattern. Trace mitral regurgitation. Trace tricuspid regurgitation with an estimated PAP of 32 mmHg. There is no evidence of significant pericardial effusion. Signed by : Taye Moya, Electronically Approved : 01/19/2021 16:13:50
== END ==
LOC: ECHO 10:43
PROVIDERS: ATTEND Internal Medicine Cardiovascular Disease
DX: I25.10 Atherosclerotic heart disease of native coronary artery without angina pectoris (principal); I10 Essential (primary) hypertension; E11.9 Type 2 diabetes mellitus without complications; F17.200 Nicotine dependence, unspecified, uncomplicated
CPT/HCPCS: 93306